=== PATIENT | male | born 1960 | race Two or more races ===

== ENCOUNTER 2024-04-30 14:34 | Emergency (ER) | payer MEDICAID, OTHER ==
[~2024-04-30] VITALS: Ht 177.8 cm; Wt 117.2 kg
[2024-04-30] MEDS ORDERED: PANT40T PO (15:42)
[2024-04-30] MEDS ORDERED: FURO1TAB33 PO (15:42)
[2024-04-30] MEDS ORDERED: ATOR-47 PO (15:42)
--- NOTE | 2024-04-30 15:44 | ED.PDOC ---
Musculoskeletal HPI Comments 63-year-old male patient presents to the clinic for refill of his Lasix and lisinopril and atorvastatin. Patient is reports previous history of DC. Patient denies chest pain. Patient has pedal edema pitting +2 to bilateral lower extremities. Patient has 2 pills left of his Lasix. Patient does have a PCP but has not yet established care. Patient blood pressure in office 107/35. Patient advised that we will refill his Lasix and his atorvastatin but will not be refilling his lisinopril. Patient has not been taking lisinopril for over 1 month. Chief Complaint: Lower Extremity Time Seen by MD: 14:56 Reviewed Notes: Nurses Notes, Medications, Allergies Allergies: Coded Allergies: Piperacillin (Verified Allergy, Unknown, 04/30/24) Tazobactam (Verified Allergy, Unknown, 04/30/24) Home Meds Active Scripts Pantoprazole Sodium Sesquihydr (Pantoprazole Sodium) 40 Mg Tab, 40 MG PO DAILY, #30 TAB 0 Refills Prov:SARANYA RIOJAS [facility] 04/30/24 Atorvastatin Calcium (ATORVASTATIN CALCIUM) 80 Mg Tab, 80 MG PO DAILY for 30 Days, #30 TAB 0 Refills Prov:SARANYA RIOJAS [facility] 04/30/24 Furosemide (Lasix) 20 Mg Tb, 40 MG PO DAILY for 30 Days, #60 TAB 1 Refill Prov:SARANYA RIOJAS [facility] 04/30/24 Mode of Arrival: Ambulatory Constitutional: denies: chills, diaphoresis, fatigue, fever, malaise, sweats, weakness, others EENTM: denies: blurred vision, double vision, ear bleeding, ear discharge, ear drainage, ear pain, ear ringing, eye pain, eye redness, hearing loss, mouth pain, mouth swelling, nasal discharge, nose bleeding, nose congestion, nose pain, photophobia, tearing, throat pain, throat swelling, voice changes, others Respiratory: denies: cough, hemoptysis, orthopnea, SOB at rest, shortness of breath, SOB with excertion, stridor, wheezing, others Cardiovascular: reports: edema; denies: chest pain, dizzy spells, diaphoresis, Dyspnea on exertion, irregular heart beat, left arm pain, lightheadedness, palpitations, PND, syncope, others Gastrointestinal: denies: abdomen distended, abdominal pain, blood streaked bowels, constipated, diarrhea, dysphagia, difficulty swallowing, hematemesis, melena, nausea, poor appetite, poor fluid intake, rectal bleeding, rectal pain, vomiting, others Genitourinary: denies: burning, dysuria, flank pain, frequency, hematuria, incontinence, penile discharge, penile sore, pain, testicle pain, testicle swelling, urgency, others Neurological: denies: dizziness, fainting, headache, left sided numbness, left sided weakness, numbness, paresthesia, pre-existing deficit, right sided n umbness, right sided weakness, seizure, speech problems, tingling, tremors, weakness, others Musculoskeletal: denies: back pain, gout, joint pain, joint swelling, muscle pain, muscle stiffness, neck pain, others Integumetry: denies: bruises, change in color, change in hair/nails, dryness, laceration, lesions, lumps, rash, wounds, others Allergic/Immunocompromised: denies: Difficulty Healing, Frequent Infections, Hives, Itching, others Hematologic/Lymphatic: denies: anemia, blood clots, easy bleeding, easy bruising, swollen glands, others Endocrine: denies: excessive hunger, excessive sweating, excessive thirst, excessive urination, flushing, intolerance to cold, intolerance to heat, unexplained weight gain, unexplained weight loss, others Psychiatric: denies: anxiety, bipolar disorder, depression, hopeless, panic disorder, schizophrenia, sleepless, suicidal, others All Other Systems: Reviewed and Negative Physical Exam General Appearance: No Apparent Distress, Normal HEENT: Normal ENT Inspection, Pharynx Normal, TMs Normal Neck: Full Range of Motion, Non-Tender, Normal, Normal Inspection Respiratory: Chest Non-Tender, Lungs Clear, No Accessory Muscle Use, No Respiratory Distress, Normal Breath Sounds Cardiovascular: No JVD, No Murmur, No Gallop, Normal Peripheral Pulses, Regular Rate/Rhythm, Other (Pitting edema +2 to bilateral lower extremities from the ankles to the mid calf) Breast Exam: Deferred Gastrointestinal: No Organomegaly, Non Tender, No Pulsatile Mass, Normal Bowel Sounds, Soft Genitalia: Deferred Pelvic: Deferred Rectal: Deferred Extremities: No calf tenderness, Normal capillary refill, Normal inspection, Normal range of motion, Non-tender, No pedal edema Musculoskeletal : Location: NOT DONE Apperance: Normal Neurologic: Alert, cardiovascular sonographer II-XII nml as Tested, No Motor Deficits, Normal Affect, Normal Mood, No Sensory Deficits Cerebellar Function: Normal Reflexes: Normal Skin: Dry, Normal Color, Warm Lymphatic: No Adenopathy Was a procedure done? Was a procedure done?: No Differential Diagnosis EXT Differential Diagnosis: Cellulitis, CHF X-Ray, Labs, Meds, VS Vital Signs Date Time Temp Pulse Resp B/P (MAP) Pulse Ox O2 Delivery O2 Flow Rate FiO2 04/30/24 15:51 98.5 90 16 114/71 (85) 96 98.5 04/30/24 15:51 90 04/30/24 15:07 98.6 91 16 107/35 (59) 95 X-Ray, Labs, Meds, VS Comment On re-evaluation patient has symptomatic improvement. Patient is stable for discharge at this time. All test results and diagnostic imaging have been interpreted. All diagnostic findings, discharge care, and education instruction provided to the patient. Follow-up with PCP in 2-3 days Patient verbalized understanding, discharge instructions and agrees to treatment plan Vital signs are stable Patient is ambulatory Patient advised of which symptoms necessitate a return visit to the emergency room. Patient to return emergency room for any new worsening symptoms. Patient is aware that the purpose of this visit is for an acute medical emergency requiring emergent stabilization. Chronic conditions, including malignancies have not been ruled out. Patient is instructed to follow up with PCP as directed for continued care and workup. If unable to arrange follow up, patient is to return to the emergency room for reassessment. Patient was given verbal and written discharge instructions and acknowledges understanding Time of 1ST Reevaluation: 15:23 Reevaluation 1ST: Unchanged Patient Education/Counseling: Diagnosis, Treatment, Prognosis Family Education/Counseling: No Family Present Departure 1 Departure Time of Disposition: 15:43 Impression: Primary Impression: Medication refill Disposition: 01 HOME / SELF CARE / HOMELESS Condition: Stable e-Prescriptions Pantoprazole Sodium Sesquihydr (Pantoprazole Sodium) 40 Mg Tab 40 MG PO DAILY, #30 TAB 0 Refills Prov: SARANYA RIOJAS [employer] 04/30/24 Atorvastatin Calcium (ATORVASTATIN CALCIUM) 80 Mg Tab 80 MG PO DAILY for 30 Days, #30 TAB 0 Refills Prov: SARANYA RIOJAS [employer] 04/30/24 Furosemide (Lasix) 20 Mg Tb 40 MG PO DAILY for 30 Days, #60 TAB 1 Refill Prov: SARANYA RIOJAS 04/30/24 Discharged With: Self Critical Care Note Critical Care Time?: No Stability Stability form required: No Heart Score Heart Score: Heart Score Response (Comments) Value History N/A 0 EKG N/A 0 Age N/A 0 Risk Factors N/A 0 Troponin N/A 0 Total 0 SARANYA RIOJAS [facility] Apr 30, 2024 15:44
[2024-04-30 15:51] VITALS: BP 114/71; PULSE 90; RESP 16; TEMP 98.5; O2SAT 96
== END 2024-04-30 16:16 | disposition home or self-care (01) ==
LOC: ER 14:34
DX: Z76.0 Encounter for issue of repeat prescription (principal); Z88.1 Allergy status to other antibiotic agents; Z88.6 Allergy status to analgesic agent; Z79.899 Other long term (current) drug therapy